=== PATIENT | female | born 1975 | race African-American/Black ===

== ENCOUNTER 2023-02-04 01:26 | Emergency (ER) | payer MEDICAID, OTHER ==
[~2023-02-04] VITALS: Ht 172.7 cm; Wt 95.0 kg
[2023-02-04] MEDS ORDERED: DICYCLOMINE 10 MG/5 ML ORAL SYR PO STA (01:50)
[2023-02-04] MEDS ORDERED: VISCOUS LIDOCAINE 2% 15 ML UDC PO STA (01:50)
[2023-02-04] MEDS ORDERED: MAGNESIUM/ALUMINUM HYDROXIDE/SIMETHICONE 30ML UDC PO STA (01:50)
[2023-02-04] MEDS ORDERED: ACETAMINOPHEN 325MG TABLET PO ONE (02:00)
[2023-02-04] MEDS ORDERED: MORPHINE SULFATE 4 MG/ML CPJ (NOT FOR IM USE) IV ONE ×2 (03:00→13:30)
[2023-02-04] MEDS ORDERED: ONDANSETRON HCL 4MG/2ML INJ IV ONE (03:00)
[2023-02-04 03:10] LABS: BASOPHILS % 0.9 % (0.0-2.0); EOSINOPHILS % 3.3 % (0.0-5.0); HEMATOCRIT. 42.4 % (36.0-48.0); HEMOGLOBIN. 13.8 g/dL (12.0-16.0); MEAN CORPUSCULAR HEMOGLOBIN 26.9 pg (28.0-32.0); MEAN CORPUSCULAR VOLUME 82.6 fL (81.0-99.0); MEAN PLATELET VOLUME 8.2 fl (7.4-10.4); MONOCYTES % 6.7 % (2.0-8.0); NEUTROPHILS % 50.1 % (40.0-76.0); PLATELET 380 x1000/uL (130-400); RED BLOOD CELL COUNT 5.13 mill/uL (4.2-5.4); RED CELL DISTRIBUTION WIDTH 15.5 % (11.6-14.6)
[2023-02-04 03:16] LABS: CHLORIDE 112 mEq/L (98-107)
[2023-02-04 03:17] LABS: HCG SCREEN NEGATIVE
[2023-02-04] MEDS ORDERED: IOHEXOL-300 100 ML BOTTLE ONE (03:45)
[2023-02-04 05:11] LABS: CLARITY URINE CLEAR (CLEAR); COLOR URINE YELLOW (YELLOW); KETONES URINE NEGATIVE (NEGATIVE); LEUKOCYTE ESTERASE URINE NEGATIVE (NEGATIVE); NITRITE URINE NEGATIVE (NEGATIVE); OCCULT BLOOD URINE NEGATIVE (NEGATIVE); PH URINE 6.5 (4.5-8.0); PROTEIN URINE NEGATIVE (NEGATIVE); SPECIFIC GRAVITY URINE 1.035 (1.005-1.030); UROBILINOGEN URINE 0.2 E.U./dL (0.2-1.0)
[2023-02-04] MEDS ORDERED: OMEP20TA23 MT (05:59)
[2023-02-04] MEDS ORDERED: ONDA4TAB50 MT (05:59)
[2023-02-04] MEDS ORDERED: CEFTRIAXONE 1GM PREMIX 50 ML IV ONE (13:15)
[2023-02-04 16:30] VITALS: BP 129/82
== END 2023-02-04 18:45 | disposition short-term general hospital (02) ==
LOC: ER 01:26 → CANBEDREQ 02-05 19:38
DX: R10.11 Right upper quadrant pain (principal); R10.13 Epigastric pain; R11.2 Nausea with vomiting, unspecified; Z20.822 Contact with and (suspected) exposure to COVID-19; Z88.0 Allergy status to penicillin
CPT/HCPCS: 36415; 74177; 76705; 76857; 80053; 81003; 83690; 84703; 85025; 87426; 93005; 96365; 96375; 96376; 99285; C9803; J0696; J2270; J2405; Q9967; Z7610